=== PATIENT | female | born 1970 | race Caucasian/White ===

== ENCOUNTER 2018-07-23 07:35 | Emergency (ER) | payer BC ==
[2018-07-23 08:11] LABS: #Basophils 0.1 thou/uL (0.0-0.2); #Eosinphils 0.2 thou/uL (0.0-0.7); #Lymphocytes 0.9 thou/uL (1.20-3.40); #Monocytes 0.3 thou/uL (0.11-0.59); #Neutrophils 2.3 thou/uL (1.40-6.50); %Basophils 1.5 % (0.0-1.0); %Eosinophils 4.8 % (0.0-10.0); %Lymphocytes 24.9 % (21.0-51.0); %Monocytes 7.1 % (0.0-10.0); %Neutrophils 61.7 % (42.0-75.0); Hemoglobin 11.2 g/dL (12.0-16.0); Mean Corpuscular HGB CONC 31.4 g/dL (32.0-36.0); Mean Corpuscular Hemoglobin 26.8 pg (27.0-31.0); Mean Corpuscular Volume 85.3 fL (78.0-98.0); Mean Platelet Volume 8.2 fL (7.4-10.4); Platelet Count 353 thou/uL (130-400); RBC Distribution Width 17.6 % (11.5-14.5); Red Blood Cell (RBC) Count 4.18 mill/uL (4.20-5.40); White Blood Cell (WBC) Count 3.7 thou/uL (4.8-10.8)
[2018-07-23] MEDS ORDERED: Nitroglycerin 2% Ointment 1 INCH/1 GM Packet ONE (08:18)
--- NOTE | 2018-07-23 08:24 | RAD ---
PORTABLE CHEST: DATE: 07/23/2018. PROVIDED CLINICAL HISTORY: Chest pain. FINDINGS: Comparison is made with the study dated 09/12/2013. Cardiac and mediastinal silhouette is within norm al limits. Lungs appear clear. No pleural fluid or pneumothorax apparent. IMPRESSION: No evidence for an acute cardiopulmonary process. POS: [facility]
[2018-07-23 08:33] LABS: ALT (SGPT) 154 U/L (8-55); AST (SGOT) 127 U/L (5-34); Albumin 4.3 g/dL (3.5-5.0); Alkaline Phosphatase 190 U/L (40-150); Anion Gap 14 mmol/L (10-20); BUN (Urea Nitrogen) 12 mg/dL (7.0-18.7); Bilirubin, Total 0.3 mg/dL (0.2-1.2); CK (CPK) 134 U/L (29-168); Calc. Creatinine Clearance 0 mL/min (70-130); Calcium 9.5 mg/dL (7.8-10.44); Carbon Dioxide 25 mmol/L (22-29); Chloride 108 mmol/L (98-107); Estimated GFR-MDRD 73; Globulin 3.3 g/dL (2.4-3.5); Glucose 82 mg/dL (70-105); Potassium 4.3 mmol/L (3.5-5.1); Protein, Total 7.6 g/dL (6.0-8.3); Sodium 143 mmol/L (136-145)
[2018-07-23] MEDS ORDERED: Fentanyl 100 MCG/2 ML VIAL ONE (09:20)
[2018-07-23] MEDS ORDERED: Acetaminophen 500 MG TAB ONE (10:36)
[2018-07-23 11:48] LABS: Troponin I Less than 0.010 ng/mL (< 0.028)
[2018-07-23] MEDS ORDERED: diphenhydrAMINE 50 MG CAP ONE (12:14)
[2018-07-23] MEDS ORDERED: Ketorolac Tromethamine 30 MG/ML VIAL ONE (12:14)
== END 2018-07-23 12:22 | disposition home or self-care (01) ==
LOC: ERS 07:35
DX: R07.9 Chest pain, unspecified (principal); F32.9 Major depressive disorder, single episode, unspecified; F17.210 Nicotine dependence, cigarettes, uncomplicated; Z79.899 Other long term (current) drug therapy
CPT/HCPCS: 36415; 71045; 80053; 82550; 83690; 84484; 85025; 93005; 94760; 96374; 96375; J1885; J3010

== ENCOUNTER 2020-04-15 16:55 | Observation (INO) | payer OTHER ==
[2020-04-15 17:27] LABS: BHCG - Serum Negative (NEGATIVE); Pregs Control Background? CLEAR/WHITE (CLR/WHITE); Pregs Control Bar Appear? YES (CONTROL BAR)
[2020-04-15 17:33] LABS: #Basophils 0.1 thou/uL (0.0-0.2); #Eosinphils 0.1 thou/uL (0.0-0.7); #Lymphocytes 1.5 thou/uL (1.20-3.40); #Monocytes 0.3 thou/uL (0.11-0.59); #Neutrophils 3.2 thou/uL (1.40-6.50); %Basophils 1.4 % (0.0-1.0); %Eosinophils 2.6 % (0.0-10.0); %Lymphocytes 29.1 % (21.0-51.0); %Monocytes 4.8 % (0.0-10.0); %Neutrophils 62.1 % (42.0-75.0); Hemoglobin 11.1 g/dL (12.0-16.0); Mean Corpuscular HGB CONC 31.6 g/dL (32.0-36.0); Mean Corpuscular Hemoglobin 28.9 pg (27.0-31.0); Mean Corpuscular Volume 91.4 fL (78.0-98.0); Platelet Count 300 thou/uL (130-400); RBC Distribution Width 17.1 % (11.5-14.5); Red Blood Cell (RBC) Count 3.84 mill/uL (4.20-5.40); White Blood Cell (WBC) Count 5.1 thou/uL (4.8-10.8)
--- NOTE | 2020-04-15 17:37 | RAD ---
Exam: Chest one view HISTORY:Chest Comparison: 07/23/2028 FINDINGS: Cardiac silhouette: Normal Aorta: Unremarkable Pulmonary vessels: Normal Costophrenic angles: Clear LUNGS: No masses or consolidation. Pneumothorax: None Osseous abnormalities: None IMPRESSION: No acute cardiopulmonary process.
[2020-04-15 17:44] LABS: ALT (SGPT) 81 U/L (8-55); AST (SGOT) 91 U/L (5-34); Albumin 4.4 g/dL (3.5-5.0); Alkaline Phosphatase 98 U/L (40-110); Anion Gap 17 mmol/L (10-20); BUN (Urea Nitrogen) 15 mg/dL (7.0-18.7); Bilirubin, Total 0.2 mg/dL (0.2-1.2); CK (CPK) 106 U/L (29-168); Calc. Creatinine Clearance 0 mL/min (70-130); Calcium 8.8 mg/dL (7.8-10.44); Carbon Dioxide 22 mmol/L (22-29); Chloride 105 mmol/L (98-107); Estimated GFR-MDRD 60; Globulin 2.8 g/dL (2.4-3.5); Glucose 82 mg/dL (70-105); Potassium 4.2 mmol/L (3.5-5.1); Protein, Total 7.2 g/dL (6.0-8.3); Sodium 140 mmol/L (136-145)
[2020-04-15] MEDS ORDERED: Nitroglycerin 2% Ointment 1 INCH/1 GM Packet ONE (18:53)
[2020-04-15] MEDS ORDERED: Aspirin Chewable 81 MG TAB ONE (18:53)
[2020-04-15] MEDS ORDERED: Ondansetron PF 4 MG/2 ML Vial ONE (19:34)
[2020-04-15] MEDS ORDERED: Morphine 4 MG/ML VIAL ONE (19:38)
[2020-04-15] MEDS ORDERED: Acetaminophen 500 MG TAB ONE (19:45)
[2020-04-15 20:32] LABS: Troponin I Less than 0.010 ng/mL (< 0.028)
[2020-04-15 20:37] VITALS: BMI 26.6
[2020-04-15] MEDS ORDERED: Ondansetron PF 4 MG/2 ML Vial IVP PRN (20:47)
[2020-04-15] MEDS ORDERED: Acetaminophen 325 MG TAB PO PRN (20:47)
[2020-04-15] MEDS: Ondansetron ODT 4 MG TAB SL PRN (21:27)
[2020-04-15] MEDS ORDERED: Senokot S 8.6-50 MG TAB PO PRN (22:24)
[2020-04-15] MEDS ORDERED: Calcium Carbonate 500 MG ChewTAB PO PRN (22:24)
--- NOTE | 2020-04-15 22:33 | PDOC.HHP ---
Hospitalist HPI - History of Present Illness Chest pain History of Present Illness: PCP: Jd Menard The patient is a 49-year-old female with a past medical history of smoking, depression and restless leg that presents to the ER for the above complaint. The patient reports the development of chest pain at 8:00 this morning. The patient reports while working at her desk, the development of a dull aching left -sided chest pain, nonradiating, described as pressure or heaviness, exacerbated with deep breathing and relieved by nothing. She reports some associated shortness of breath. She denies any recent cough and has no history of COPD or asthma. No history of hypertension, diabetes, high cholesterol. Denies any illicit drug use. No history of PE or DVT. Has no other associated symptoms. ED Course: Presented hypertensive with a blood pressure of 170/111, normal pulse, normal respirations, afebrile. EKG normal sinus rhythm, 85 bpm, no ST elevation Chest x-ray negative for any acute process Initial troponin negative Medication administration: Full dose aspirin Nitropaste 1 g of Tylenol Morphine 4 mg IVP Zofran 4 mg IV push Hospitalist ROS - Review of Systems Constitutional: denies: fever, chills Respiratory: reports: shortness of breath, pleuritic pain. denies: cough, SOB with excertion, sputum, wheezing Cardiovascular: reports: chest pain. denies: palpitations, edema, light headedness Gastrointestinal: denies: nausea, vomiting, abdominal pain, diarrhea, constipation, melena, hematochezia Genitourinary: denies: dysuria, frequency, hematuria Skin: denies: rash, bruising Neurological: denies: weakness, incoordination, change in speech, confusion All other systems reviewed; all pertinent +/- noted in HPI/Subj - Medication Medications: Active Medications Generic Name Dose Route Start Last Admin Trade Name Freq PRN Reason Stop Dose Admin Acetaminophen 650 mg 04/15/20 20:47 04/15/20 21:25 Tylenol PO 04/16/20 18:40 650 mg Q4H PRN Administration Headache/Fever or Pain Ondansetron HCl 4 mg 04/15/20 20:47 04/15/20 21:27 Zofran Odt SL 04/16/20 18:40 4 mg Q6H PRN Administration Nausea/Vomiting Medications: Lexapro 10 mg p.o. daily Ropinirole 0.5 mg p.o. nightly Trazodone 100 mg p.o. 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) Psych: reports: Depression - Past Surgical History Past Surgical History: reports: Other (gastric bypass, hysterectomy, right knee sx, cholecysectomy) - Family History Family History: reports: cardiac disorder (father and grandmother) - Social History Smoking Status: Current every day smoker (1 pack/day x 32 years) Tobacco Type: cigarettes Alcohol: reports: Occassional (Used to drink 6 beers daily, has recently decreased her daily habit to socially) Living Situation: With Family (Lives with damien) Occupation: Works at an office Activity level: independent ambulation - Exam General Appearance: NAD, awake alert Eye: anicteric sclera ENT: normocephalic atraumatic Neck: supple, symmetric, no JVD Heart: RRR, no murmur, no gallops, no rubs, normal peripheral pulses Respiratory: CTAB, no wheezes, no rales, no ronchi, normal chest expansion, no tachypnea Gastrointestinal: soft, non-tender, normal bowel sounds, no guarding, no rigidity Extremities: no cyanosis, no edema Skin: no lesions, no rashes Neurological: normal sensation to touch, no weakness, no focal deficits Musculoskeletal: normal tone, normal strength Psychiatric: normal affect, A&O x 3 Hospitalist Results - Labs Result Diagrams: 04/15/20 17:05 04/15/20 17:05 Lab results: WBC 5.1 thou/uL (4.8-10.8) 04/15/20 17:05 Hgb 11.1 g/dL (12.0-16.0) L 04/15/20 17:05 Hct 35.1 % (36.0-47.0) L 04/15/20 17:05 MCV 91.4 fL (78.0-98.0) 04/15/20 17:05 Plt Count 300 thou/uL (130-400) 04/15/20 17:05 Neutrophils % 62.1 % (42.0-75.0) 04/15/20 17:05 Sodium 140 mmol/L (136-145) 04/15/20 17:05 Potassium 4.2 mmol/L (3.5-5.1) 04/15/20 17:05 Chloride 105 mmol/L (98-107) 04/15/20 17:05 Carbon Dioxide 22 mmol/L (22-29) 04/15/20 17:05 BUN 15 mg/dL (7.0-18.7) 04/15/20 17:05 Creatinine 0.99 mg/dL (0.6-1.1) 04/15/20 17:05 Glucose 82 mg/dL (70-105) 04/15/20 17:05 Calcium 8.8 mg/dL (7.8-10.44) 04/15/20 17:05 Total Bilirubin 0.2 mg/dL (0.2-1.2) 04/15/20 17:05 AST 91 U/L (5-34) H 04/15/20 17:05 ALT 81 U/L (8-55) H 04/15/20 17:05 Alkaline Phosphatase 98 U/L (40-110) 04/15/20 17:05 Creatine Kinase 106 U/L (29-168) 04/15/20 17:05 Troponin I Less than 0.010 ng/mL (< 0.028) 04/15/20 19:56 Serum Total Protein 7.2 g/dL (6.0-8.3) 04/15/20 17:05 Albumin 4.4 g/dL (3.5-5.0) 04/15/20 17:05 - EKG Interpretation EKG: EKG normal sinus rhythm, 85 bpm, no ST elevations - Radiology Interpretation Chest x-ray Status: report reviewed by me Additional Comment: No acute cardiopulmonary process. Hospitalist H&P A/P - Problem (1) Chest pain Code(s): R07.9 - CHEST PAIN, UNSPECIFIED Status: Acute Assessment and Plan: We will admit the patient telemetry floor, observation status. Expected length of stay less than 2 midnights. Wells PE score 0. Heart score 3, low risk. EKG normal sinus rhythm, chest x-ray negative for acute process, initial troponin negative. Trend troponins, check BNP, TSH, lipase, mag level, fasting lipid profile, UA and UDS. Continue aspirin, Nitropaste and morphine as needed. Order nuc med cardiac stress test. N.p.o. after midnight. (2) Tobacco abuse Code(s): Z72.0 - TOBACCO USE Status: Chronic Assessment and Plan: Reports 1 pack/day x 32-year history. Unwilling to quit. NRT therapy. Counseled tobacco cessation. (3) Depression Code(s): F32.9 - MAJOR DEPRESSIVE DISORDER, SINGLE EPISODE, UNSPECIFIED Status : Chronic Assessment and Plan: Stable. Denies suicidal and homicidal ideation. Will restart home dose of Lexapro. (4) RLS (restless legs syndrome) Status: Chronic Assessment and Plan: Takes Risperdal at home. Will restart when home med reconciled by nursing. - Plan Plan: SCDs for DVT prophylaxis. No GI prophylaxis. Full code. Designated medical decision-maker is her Saeid quezada at [phone]. Discussed case with Dr. Aguilar.
[2020-04-15] MEDS: Nicotine 14 MG PATCH TD SCH (22:53)
[2020-04-15 22:57] LABS: Bilirubin Negative (Negative); Blood, Urine Negative (Negative); Clarity Clear (Clear); Glucose, Urine (Dipstick) Normal (Negative); Ketone, Urine 10 mg/dL (Negative); Leukocyte Negative Leu/uL (Negative); Nitrite Negative (Negative); Protein, Urine (Dipstick) Negative (Neg-Trace); RBC/HPF 0-3 HPF (0-3); Specific Gravity, Urine 1.015 (1.002-1.036); Squamous Epithelial 0-3 HPF (0-3); Urobilinogen Normal mg/dL (Less than 2); WBC/HPF 0-3 HPF (0-3); pH, Urine 5.5 (5.0-9.0)
[2020-04-15 22:58] LABS: Bacteria/HPF Rare-Few HPF (None Seen)
[2020-04-15] MEDS ORDERED: Sodium Chloride 0.9% 1,000 ML IV SCH (23:00)
[2020-04-15] MEDS ORDERED: Atorvastatin Calcium 40 MG TAB PO SCH (23:00)
[2020-04-15] MEDS: Morphine 4 MG/ML VIAL SLOW IVP PRN (23:03)
[2020-04-15 23:09] LABS: Amphetamine Not Detected (NotDetected); Barbiturates Screen Not Detected (NotDetected); Benzodiazepine Screen Not Detected (NotDetected); Cocaine Metabolite Screen Not Detected (NotDetected); Medtox Control Line Valid? VALID (VALID); Medtox Reader # READER 1; Methadone Not Detected (NotDetected); Methamphetamine Not Detected (NotDetected); Opiate Screen Detected (NotDetected); Oxycodone Screen Not Detected (NotDetected); Phencyclidine (PCP) Not Detected (NotDetected); THC/Cannabinoid Screen Not Detected (NotDetected); Tricyclic Screen Not Detected (NotDetected)
[2020-04-15 23:25] LABS: Troponin I Less than 0.010 ng/mL (< 0.028)
[2020-04-16] MEDS: Nitroglycerin 2% Ointment 1 INCH/1 GM Packet TOP SCH ×3 (01:35→18:32)
[2020-04-16] MEDS ORDERED: traZODone HCl 50 MG TAB PO SCH (01:45)
[2020-04-16] MEDS: Morphine 4 MG/ML VIAL SLOW IVP PRN ×4 (03:20→20:08)
[2020-04-16 04:41] LABS: #Eosinphils 0.2 thou/uL (0.0-0.7); #Monocytes 0.3 thou/uL (0.11-0.59); #Neutrophils 1.8 thou/uL (1.40-6.50); %Basophils 0.8 % (0.0-1.0); %Eosinophils 4.7 % (0.0-10.0); %Lymphocytes 30.5 % (21.0-51.0); Hemoglobin 10.1 g/dL (12.0-16.0); Mean Corpuscular Hemoglobin 28.9 pg (27.0-31.0); Mean Corpuscular Volume 93.2 fL (78.0-98.0); Platelet Count 238 thou/uL (130-400); RBC Distribution Width 17.1 % (11.5-14.5); Red Blood Cell (RBC) Count 3.51 mill/uL (4.20-5.40); White Blood Cell (WBC) Count 3.3 thou/uL (4.8-10.8)
[2020-04-16 05:20] LABS: ALT (SGPT) 157 U/L (8-55); AST (SGOT) 412 U/L (5-34); Albumin 3.7 g/dL (3.5-5.0); Alkaline Phosphatase 98 U/L (40-110); Anion Gap 11 mmol/L (10-20); BUN (Urea Nitrogen) 13 mg/dL (7.0-18.7); Bilirubin, Total 0.3 mg/dL (0.2-1.2); Calc. Creatinine Clearance 72 mL/min (70-130); Calcium 8.4 mg/dL (7.8-10.44); Carbon Dioxide 27 mmol/L (22-29); Cardiac Risk 2.3 (Less than 4.5); Chloride 108 mmol/L (98-107); Cholesterol 185 mg/dl (< 200 Desired); Estimated GFR-MDRD 64; Globulin 2.5 g/dL (2.4-3.5); Glucose 73 mg/dL (70-105); HDL Cholesterol 80 mg/dL (>60 Neg Risk); LDL Cholesterol, Calculated 92 mg/dL; Potassium 4.3 mmol/L (3.5-5.1); Protein, Total 6.2 g/dL (6.0-8.3); Sodium 142 mmol/L (136-145); Triglycerides 66 mg/dL (Less than 150)
[2020-04-16] MEDS: Escitalopram Oxalate 10 mg Tablet PO SCH (08:25)
[2020-04-16] MEDS: Aspirin 81 mg Enteric Coated Tablet PO SCH (10:06)
--- NOTE | 2020-04-16 11:14 | CT ---
CT ANGIOGRAM THORAX WITH IV CONTRAST AND 3-D RECONSTRUCTIONS CLINICAL INDICATION: Pleuritic chest pain and shortness of breath. COMPARISON: CT thorax on 07/22/2013 FINDINGS: Pulmonary arteries: No filling defects are seen in the pulmonary arteries to suggest a pulmonary embo kaylyn. Aorta: Minimal atherosclerotic plaque in the descending thoracic aorta. Thoracic aorta is normal in c aliber without evidence of an aortic dissection. Lungs: Minimal dependent atelectasis each posterior lung base. Lungs are otherwise clear. No pulmonar y nodule, mass, or pleural effusion is seen in the lungs bilaterally. Mediastinum: There is no evidence of lymphadenopathy. Thyroid gland: Incompletely imaged on this exam. Osseous structures: No suspicious lytic or sclerotic osseous lesion. Chest wall: No abnormality visualized. Upper abdomen: Postoperative changes related to gastric bypass procedure are again seen. Postcholecys tectomy changes are again noted. IMPRESSION: 1. No CT evidence of a pulmonary embolus.
[2020-04-16] MEDS ORDERED: ADENOSINE 60 MG/20 ML VIAL ONE (11:33)
[2020-04-16] MEDS ORDERED: Ketorolac Tromethamine 30 MG/ML VIAL IVP SCH ×2 (12:00)
[2020-04-16 12:31] LABS: SARS-CoV-2 MS2 Positive; SARS-CoV-2 N Gene Negative; SARS-CoV-2 S Gene Negative; SARS-CoV-2 by NAA Not Detected (NotDetected); SARS-CoV-2 orf1ab Negative
[2020-04-16] MEDS ORDERED: Iopamidol 370 76% 100 ML VIAL ONE (13:15)
--- NOTE | 2020-04-16 13:56 | NM ---
NUCLEAR MEDICINE CARDIAC MYOCARDIAL PERFUSION SPECT EJECTION FRACTION STUDY WALL MOTION CINE: DATE: 04/16/2020 HISTORY: 49-year-old female smoker presents with acute chest pain TECHNIQUE: Number of days: 1 Rest study: Technetium 99m-sestamibi (Cardiolite) dose: 9.2 mCi Pharmacologic stress: Adenosine dose: 34.6 mg Stress study: Technetium 99m-sestamibi (Cardiolite) dose: 29.9 mCi FINDINGS: CARDIAC (MYOCARDIAL PERFUSION) SPECT There are no reversible myocardial perfusion defects. Questionable faint mild fixed anteroseptal defect which may or may not represent small scar/infarctio n. EJECTION FRACTION STUDY Left ventricular EF = 78 % WALL MOTION CINE Normal IMPRESSION: No evidence of reversible ischemia.
[2020-04-16] MEDS ORDERED: Famotidine 20 MG TAB PO SCH (14:30)
[2020-04-16] MEDS: Lidocaine 5% Patch TD SCH (16:04)
[2020-04-16] MEDS: Ondansetron ODT 4 MG TAB SL PRN (17:19)
--- NOTE | 2020-04-16 18:18 | PDOC.HOSPP ---
- Subjective Encounter Date: 04/16/20 Encounter Time: 07:00 Subjective: The patient continues to have chest pain on the left side of her chest. Aspirin and nitro have not relieved her pain. She states pain is worst when taking a deep breath. COVId negative. Denies recent trauma She states her pain was also worst when laying on her left side but did notice a difference sitting up Patient reportedly threw up her dinner She denies joint pain or joint swelling. Grandmother has rheumatoid arthritis, no family history of lupus - Objective Vital Signs & Weight: Vital Signs (12 hours) Temp Pulse Resp BP BP Pulse Ox 04/16/20 15:34 98.3 F 85 16 172/82 H 98 04/16/20 13:45 66 20 173/92 H 97 04/16/20 08:36 97 04/16/20 07:30 98.3 F 72 15 161/100 H 97 Weight Weight 136 lb 11.2 oz I&O: 04/15/20 04/16/20 04/17/20 06:59 06:59 06:59 Intake Total 1115 950 Output Total 500 Balance 615 950 Result Diagrams: 04/16/20 04:15 04/16/20 04:15 Hospitalist ROS - Review of Systems Constitutional: denies: fever, chills - Medication Medications: Active Medications Generic Name Dose Route Start Last Admin Trade Name Freq PRN Reason Stop Dose Admin Acetaminophen 650 mg 04/15/20 20:47 04/15/20 21:25 Tylenol PO 04/16/20 18:40 650 mg Q4H PRN Administration Headache/Fever or Pain Aspirin 81 mg 04/16/20 09:00 04/16/20 10:06 Ecotrin PO 81 mg DAILY RICKY Administration Escitalopram Oxalate 10 mg 04/16/20 09:00 04/16/20 08:25 Lexapro PO 10 mg DAILY RICKY Administration Lidocaine 1 patch 04/16/20 16:00 04/16/20 16:04 Lidoderm 5% Patch TD 1 patch 1600 RICKY Administration Morphine Sulfate 4 mg 04/15/20 22:53 04/16/20 13:57 Morphine SLOW IVP 4 mg Q4H PRN Administration Pain 6-10 Nicotine 14 mg 04/15/20 23:00 04/15/20 22:53 Nicoderm Patch TD 14 mg 2300 RICKY Administration Nitroglycerin 0.5 inch 04/16/20 02:00 04/16/20 08:36 Nitro-Bid 2% Ointment TOP Not Given 0200,1000,1800 RICKY Ondansetron HCl 4 mg 04/15/20 20:47 04/16/20 17:19 Zofran Odt SL 04/16/20 18:40 4 mg Q6H PRN Administration Nausea/Vomiting - Exam General Appearance: NAD, awake alert Eye: PERRL, anicteric sclera ENT: normocephalic atraumatic, no oropharyngeal lesions Neck: no JVD Heart: RRR, no murmur, no gallops, no rubs Respiratory: CTAB, no wheezes Gastrointestinal: soft, non-tender, non-distended, normal bowel sounds Extremities: no cyanosis, no clubbing, no edema Musculoskeletal - other findings: tenderness to chest palpation on left chest Hosp A/P - Plan CTA chest: no PE Stress test: normal THis is 49 year old female who presents with acute onset chest pain Chest pain - possibly costochondritis versus muscular etiology vs GI cause - stress test negative, ECHO normal, EKG benign - no relief with aspirin or nitro so will d/c - ordered lidocaine patch . Patient allergic to toradol, codeine/hydrocodone. Tramadol causes seizures Hypertensive urgency -BP in the 170's - will order amlodipine and reassess Transaminitis - LFTs have increased significantly. Got atorvastatin yesterday. Will hold further - check abdominal US to evaluate gallstones - give a dose of zosyn in case this is intra-abd infection . No abdominal tenderness on exam however - check hepatitis panel Leukopenia - WBC low at 3, will continue to trend - COVID negative Anemia - Hb - check iron panel in am,
[2020-04-16 19:48] LABS: HBCM Index 0.08 S/CO (0-0.79); HBSAg Index 0.19 S/CO (0-0.99); Hep A IgM AB Non-Reactive (NonReactive); Hep B Surf Ag Non-Reactive S/CO (NonReactive); Hep C IgG Ab Non-Reactive (NonReactive); Hep C Index 0.08 S/CO (0-0.79); Hepatitis B Core IgM Abs Non-Reactive (NonReactive)
[2020-04-16] MEDS ORDERED: Amlodipine 5 MG TAB PO SCH (20:00)
[2020-04-16] MEDS: Pantoprazole 40 MG VIAL IVP SCH (20:11)
[2020-04-16] MEDS: rOPINIRole HCl 0.5 MG TAB PO SCH (21:23)
[2020-04-16] MEDS: traZODone HCl 50 MG TAB PO SCH (21:23)
[2020-04-16] MEDS: Piperacillin/Tazobactam 3.375 GM in Sodium Chloride 0.9% 100 ML IVPB SCH (21:24)
[2020-04-16] MEDS: Nicotine 14 MG PATCH TD SCH (22:09)
--- NOTE | 2020-04-16 22:14 | ULT ---
EXAM: US Gallbladder RUQ CLINICAL HISTORY: Chest pain. Transaminitis.. COMPARISON: 09/25/2012 FINDINGS: Pancreas: The head of the pancreas has a normal echotexture. The remainder the pancreas is obscured by bowel gas Liver:Hepatic parenchyma has a normal echotexture. No hepatic masses or intrahepatic biliary dilatati on. Right hepatic lobe: 14.2 cm Gallbladder: Surgically absent De La Garza's sign:Not applicable Portal Vein: Patent. Appropriate directional flow Bile ducts: 0.8 cm common bile duct diameter Right kidney: Right renal cortical thinning. No hydronephrosis. Right kidney measures 5.0 x 4.5 x 9.5 cm in length. IMPRESSION: Normal hepatic parenchymal echotexture.
[2020-04-16] MEDS ORDERED: Lidocaine 5% Patch TD SCH (23:00)
[2020-04-17] MEDS: Morphine 4 MG/ML VIAL SLOW IVP PRN ×3 (00:28→22:29)
[2020-04-17] MEDS: Lidocaine Patch Removal 1 EACH TOP SCH (03:40)
[2020-04-17] MEDS: Piperacillin/Tazobactam 3.375 GM in Sodium Chloride 0.9% 100 ML IVPB SCH ×4 (03:40→22:21)
[2020-04-17 05:08] LABS: Iron 22 ug/dL (50-170); Iron Binding Capacity, Total 465 mcg/dL (265-497)
[2020-04-17 05:35] LABS: Ferritin 18.35 ng/mL (10-291)
[2020-04-17] MEDS: Aspirin 81 mg Enteric Coated Tablet PO SCH (08:40)
[2020-04-17] MEDS: Escitalopram Oxalate 10 mg Tablet PO SCH (08:40)
[2020-04-17] MEDS: Pantoprazole 40 MG VIAL IVP SCH ×2 (08:40→20:33)
[2020-04-17] MEDS ORDERED: Cyanocobalamin 1000 MCG/ML VIAL IM SCH (09:00)
[2020-04-17] MEDS ORDERED: diphenhydrAMINE 25 MG CAP PO PRN (09:13)
[2020-04-17] MEDS ORDERED: Gabapentin 100 MG CAP PO SCH (09:30)
[2020-04-17] MEDS ORDERED: Ferrous Sulfate 325 MG TAB PO SCH ×2 (10:00→17:00)
[2020-04-17 10:45] LABS: Hemoglobin 11.2 g/dL (12.0-16.0); Mean Corpuscular HGB CONC 29.5 g/dL (32.0-36.0); Mean Corpuscular Hemoglobin 28.2 pg (27.0-31.0); Mean Corpuscular Volume 95.7 fL (78.0-98.0); Mean Platelet Volume 7.8 fL (7.4-10.4); Platelet Count 262 thou/uL (130-400); RBC Distribution Width 17.5 % (11.5-14.5); Red Blood Cell (RBC) Count 3.98 mill/uL (4.20-5.40); White Blood Cell (WBC) Count 4.5 thou/uL (4.8-10.8)
[2020-04-17 10:54] LABS: ALT (SGPT) 107 U/L (8-55); AST (SGOT) 84 U/L (5-34); Alkaline Phosphatase 94 U/L (40-110); Bilirubin, Direct 0.2 mg/dL (0.1-0.3); Bilirubin, Total 0.5 mg/dL (0.2-1.2); Protein, Total 6.8 g/dL (6.0-8.3)
[2020-04-17] MEDS ORDERED: Lidocaine 5% Patch TD SCH (11:00)
--- NOTE | 2020-04-17 13:16 | CT ---
CT CERVICAL SPINE NONCONTRAST: DATE: 04/17/2020 HISTORY: 49-year-old female with cervical radiculopathy COMPARISON: 03/17/2014 FINDINGS: There is no subluxation. There is no evidence of acute fracture. The vertebral body heights are maint ained. There is no prevertebral soft tissue swelling. Mild to moderate disc space narrowing at C3-4, and mild disc space narrowing at C4-5, both new since prior CT. Previously mentioned mildly pro minent cervical lymph nodes are unchanged, and appear benign. C1-2: No central stenosis. C2-3: Essentially normal. C3-4: Mild left facet DJD. No central or neural foraminal stenosis. C4-5:. Small central disc protrusion, new or slightly larger than previously. No neural foraminal jannie nosis. Low-grade central spinal canal stenosis. Normal facet joints. C5-6: Small central disc protrusion encroaches upon anterior aspect of spinal canal. At least mild ce ntral spinal canal stenosis. No neural foraminal stenosis. C6-7: Central and left-central focal disc disc protrusion-osteophyte complex. No neural foraminal jannie nosis. No high-grade facet DJD. C7-T1: No high-grade central spinal canal stenosis or neural foraminal stenosis. IMPRESSION: 1) mild cervical spondylosis, slightly progressed since 04/13/2014. 2) disc protrusions at several levels. 3) no significant neural foraminal stenosis at any level.
[2020-04-17] MEDS: Lidocaine 5% Patch TD SCH (16:08)
[2020-04-17] MEDS ORDERED: Ketorolac Tromethamine 30 MG/ML VIAL IVP SCH (16:15)
[2020-04-17] MEDS ORDERED: predniSONE 20 MG TAB PO SCH (18:15)
[2020-04-17] MEDS ORDERED: Lorazepam 0.5 MG TAB PO PRN (19:40)
--- NOTE | 2020-04-17 19:43 | PDOC.HOSPP ---
- Subjective Encounter Date: 04/17/20 Encounter Time: 09:30 non-verbal Subjective: Chest pain - The patient states her chest pain improved to 8/10 and thinks antibiotics helped. She states she had burning in her abdomen and protonix has helped with that. Gabapentin was tried but made her very loopy and hyper and does not want to try it again. She states it did help her chest pain though. No relief with toradol that was tried today She is interested in trying tramadol for her chest pain, states that previously she had a seizure with it but thinks that she took something else with it at the time that caused the seizure. SHe reports she is an occasional drinker, drinks one glass of one every weekend. Neck pain - The patient had cT cervical spine, showed mild spondylosis. Reports neck pain worst with bending to the left. She does have tingling down her arm. Patient reported she was claustrophobic to MRI. SHe is agreeable to trying ativan, initially listed as an allergy but she states she is not allergic to it. Patient was going to be dc today but has no ride home. She states her lives in [place] - Objective Vital Signs & Weight: Vital Signs (12 hours) Temp Pulse Resp BP Pulse Ox 04/17/20 16:00 98.4 F 72 16 157/96 H 98 04/17/20 11:37 98.4 F 72 16 136/87 99 04/17/20 10:50 97 Weight Weight 136 lb 11.2 oz I&O: 04/16/20 04/17/20 04/18/20 06:59 06:59 06:59 Intake Total 1115 1850 Output Total 500 Balance 615 1850 Result Diagrams: 04/17/20 10:02 04/16/20 04:15 Hospitalist ROS - Review of Systems Constitutional: denies: fever, chills - Medication Medications: Active Medications Generic Name Dose Route Start Last Admin Trade Name Freq PRN Reason Stop Dose Admin Aspirin 81 mg 04/16/20 09:00 04/17/20 08:40 Ecotrin PO 81 mg DAILY RICKY Administration Cyanocobalamin 1,000 mcg 04/17/20 09:00 04/17/20 10:34 Vitamin B-12 IM 1,000 mcg [id number] RICKY Administration Diphenhydramine HCl 25 mg 04/17/20 09:13 04/17/20 16:59 Benadryl PO 25 mg Q6H PRN Administration Itching & Insomnia Escitalopram Oxalate 10 mg 04/16/20 09:00 04/17/20 08:40 Lexapro PO 10 mg DAILY RICKY Administration Piperacillin Sod/Tazobactam 100 mls @ 200 mls/hr 04/16/20 21:00 04/17/20 16: 08 Sod 3.375 gm/ Sodium Chloride IVPB 100 mls 0300,0900,1500,2100 RICKY Administration Lidocaine 1 patch 04/16/20 16:00 04/17/20 16:08 Lidoderm 5% Patch TD 1 patch 1600 RICKY Administration Miscellaneous Medication 1 each 04/17/20 04:00 04/17/20 03:40 Lidocaine Patch Removal TOP 1 each 0400 RICKY Administration Morphine Sulfate 4 mg 04/15/20 22:53 04/17/20 06:32 Morphine SLOW IVP 4 mg Q4H PRN Administration Pain 6-10 Nicotine 14 mg 04/15/20 23:00 04/16/20 22:09 Nicoderm Patch TD Not Given 2300 RICKY Pantoprazole Sodium 40 mg 04/16/20 21:00 04/17/20 08:40 Protonix IVP 40 mg Q12HR RICKY Administration Prednisone 40 mg 04/17/20 18:15 04/17/20 19:19 Prednisone PO 04/17/20 20:15 40 mg NOW RICKY Administration Ropinirole HCl 0.5 mg 04/16/20 21:00 04/16/20 21:23 Requip PO 0.5 mg HS RICKY Administration Sodium Chloride 10 ml 04/15/20 22:24 04/16/20 20:10 Flush - Normal Saline IVF 10 ml PRN PRN Administration Saline Flush Trazodone HCl 100 mg 04/16/20 21:00 04/16/20 21:23 Desyrel PO 100 mg HS RICKY Administration - Exam General Appearance: NAD, awake alert Eye: PERRL, anicteric sclera ENT: normocephalic atraumatic, no oropharyngeal lesions Neck: supple, symmetric, no JVD, no thyromegaly Heart: RRR, no murmur, no gallops, no rubs Respiratory: CTAB, no wheezes, no rales, no ronchi Gastrointestinal: soft, non-tender, non-distended, normal bowel sounds Extremities: no cyanosis, no clubbing, no edema Skin: normal turgor, no lesions, no rashes Neurological: cranial nerve grossly intact, normal sensation to touch, no focal deficits, no new deficit Musculoskeletal: normal tone, normal strength, no muscle wasting Psychiatric: normal affect, normal behavior, A&O x 3, oriented to person Hosp A/P - Plan CTA chest: no PE Stress test: normal THis is 49 year old female who presents with acute onset chest pain Chest pain - possibly costochondritis versus muscular etiology vs GI cause - stress test negative, ECHO normal, EKG benign - no relief with aspirin or nitro so will d/c. No relief with toradol - had some relief with gabapentin, so possibility of nerve etiology. Neck pain with left arm radiculopathy - CT cervical spine showed mild spondylosis with disc protrusions at several levels . No high grade stenosis but C5-C6 there is some encroaching on spinal canal - check MRI cervical spine tomorrow. She has mildly prominent cervical LN which appear benign Hypertensive urgency - continue amlodipine Transaminitis - LFTs have improved. Abd US normal. Hepatitis serology normal - likely from atorvastatin, discontinue further dosing Leukopenia - improving, continue to trend - COVID negative Iron deficiency Anemia -started iron supplementation
[2020-04-17] MEDS ORDERED: Amlodipine 5 MG TAB PO SCH (20:00)
[2020-04-17] MEDS: rOPINIRole HCl 0.5 MG TAB PO SCH (20:27)
[2020-04-17] MEDS: traZODone HCl 50 MG TAB PO SCH (20:27)
[2020-04-17] MEDS: Acetaminophen 325 MG TAB PO PRN (20:27)
[2020-04-17] MEDS: traMADol HCl 50 MG TAB PO PRN (20:28)
[2020-04-17] MEDS: Ondansetron PF 4 MG/2 ML Vial IVP PRN (20:30)
[2020-04-17] MEDS: Nicotine 14 MG PATCH TD SCH (23:11)
[2020-04-18] MEDS: traMADol HCl 50 MG TAB PO PRN ×2 (02:52→09:08)
[2020-04-18] MEDS: Acetaminophen 325 MG TAB PO PRN ×2 (02:52→09:08)
[2020-04-18] MEDS: Piperacillin/Tazobactam 3.375 GM in Sodium Chloride 0.9% 100 ML IVPB SCH ×2 (02:56→12:15)
[2020-04-18] MEDS: Lidocaine Patch Removal 1 EACH TOP SCH (02:58)
[2020-04-18] MEDS: Morphine 4 MG/ML VIAL SLOW IVP PRN ×2 (04:21→12:15)
[2020-04-18] MEDS: Aspirin 81 mg Enteric Coated Tablet PO SCH (09:08)
[2020-04-18] MEDS: Escitalopram Oxalate 10 mg Tablet PO SCH (09:08)
[2020-04-18] MEDS: Pantoprazole 40 MG VIAL IVP SCH (09:10)
[2020-04-18] MEDS: Ondansetron PF 4 MG/2 ML Vial IVP PRN (13:17)
[2020-04-18] MEDS ORDERED: Magnevist 469MG/ML 20 ML VIAL ONE ×2 (13:38)
--- NOTE | 2020-04-18 14:40 | MRI ---
EXAM: MRI Thoracic Spine W WO Con PROVIDED CLINICAL HISTORY: Left anterior chest pain as well as back pain. COMPARISON: None FINDINGS: The common duct is dilated. Patient has history of cholecystectomy, but this is likely related to res ervoir effect. The common duct measures 10 mm in diameter. Motion is present on multiple sequences which does mildly degrade image quality. The paravertebral soft tissues have a normal appearance. Normal signal intensity is demonstrated in the bone marrow. Conus medullaris is normal in appearance and terminates at the level of the L1 vertebral body. There is a mild disc osteophyte complex with central disc protrusion at the T2-3 level which results in effacement of the ventral subarachnoid space. Although there is motion artifact, there does not appear to be significant neural foraminal narrowing. At the T3-4 level, there is a mild disc osteophyte complex with effacement of the ventral subarachnoi d space and slight flattening of the anterior aspect of the spinal cord. Neural foramina are patent At the T5-6 level, there is a disc osteophyte complex with central disc protrusion/extrusion which do es result in mass effect and flattening of the central and right anterolateral aspect of the spinal cord. No abnormal signal intensity is appreciated in the spinal cord. Neural foramina are patent. Minimal disc osteophyte complexes are present at the T7-8 and T8-9 levels with slight effacement of t he ventral subarachnoid space at these levels and slight flattening of the anterior aspect of the spinal cord at the T8-9 level. Normal signal intensity is seen in the spinal cord at these levels. Ne ural foramina are patent at these levels. No additional significant intradural or extradural defect is identified, and the central spinal canal and neural foramina at the remaining levels of the thoracic spine are patent. No abnormal areas of enhancement are seen after the administration of intravenous contrast. IMPRESSION: Scattered degenerative changes in the cervical spine greatest at the T5-6 level. No high-grade centra l canal or neural foraminal narrowing is appreciated involving the thoracic spine.
[2020-04-18 14:53] LABS: Hemoglobin 10.5 g/dL (12.0-16.0); Mean Corpuscular HGB CONC 29.9 g/dL (32.0-36.0); Mean Corpuscular Hemoglobin 28.4 pg (27.0-31.0); Mean Corpuscular Volume 94.9 fL (78.0-98.0); Mean Platelet Volume 8.1 fL (7.4-10.4); Platelet Count 239 thou/uL (130-400); RBC Distribution Width 17.4 % (11.5-14.5); Red Blood Cell (RBC) Count 3.69 mill/uL (4.20-5.40)
--- NOTE | 2020-04-18 14:56 | MRI ---
MRI Cervical spine with and without contrast: HISTORY: Neck pain with left arm radiculopathy. COMPARISON: None FINDINGS: Mild mucosal thickening is present in the right maxillary antrum and right sphenoid sinus. The craniocervical junction is unremarkable. No significant cord signal abnormality. Paravertebral soft tissues have a normal appearance and normal signal intensity. C1-2:No significant stenosis. C2-3: There is no disc bulge or disc herniation. The central spinal canal and neural foramina are pat ent. C3-4: There is no disc bulge or disc herniation. The central spinal canal and neural foramina are pat ent. C4-5: Minimal disc aspect complex with tiny central disc protrusion. This narrows the ventral subarac hnoid space with slight flattening of the anterior aspect of the spinal cord. Neural foramina are patent. C5-6: Small central/right paracentral disc protrusion which contacts and flattens the right anterolat eral aspect of the spinal cord. Normal signal intensity is present in the spinal cord. Neural foramina are patent. C6-7: Broad-based disc osteophyte complex resulting in mild narrowing of the central spinal canal wit h mild flattening of the anterior aspect of the spinal cord. Neural foramina are patent. C7-T1: Tiny left paracentral disc protrusion resulting in slight effacement of the left anterolateral aspect of the ventral subarachnoid space but does not contact the spinal cord. Neural foramina are patent. T1-2 level: No disc bulge or disc herniation. Central spinal canal and neural foramina are patent T2-3 level: Minimal disc osteophyte complex with slight effacement of the ventral subarachnoid space. Neural foramina are patent T3-4 level: Tiny central disc protrusion resulting in effacement of the central aspect of the ventral subarachnoid space. Neural foramina are patent No abnormal areas of enhancement are seen after the administration of intravenous contrast. IMPRESSION: 1. Multilevel degenerative changes in the cervical spine as described above. No high-grade central ca nal or neural foraminal narrowing is present. Mild degrees of central canal narrowing and flattening of the anterior spinal cord are seen at levels of disc degenerative change.
[2020-04-18 15:12] LABS: ALT (SGPT) 64 U/L (8-55); AST (SGOT) 28 U/L (5-34); Albumin 3.7 g/dL (3.5-5.0); Alkaline Phosphatase 73 U/L (40-110); Bilirubin, Direct 0.1 mg/dL (0.1-0.3); Bilirubin, Total 0.2 mg/dL (0.2-1.2); Protein, Total 6.4 g/dL (6.0-8.3)
[2020-04-18 15:53] VITALS: BP 142/81; TEMP 98.2
--- NOTE | 2020-04-18 19:43 | DIS ---
DATE OF ADMISSION: 04/15/2020 DATE OF DISCHARGE: 04/18/2020 DISCHARGE DIAGNOSES: 1. Chest pain possibly secondary to costochondritis. 2. Leukopenia. 3. Iron deficiency anemia. 4. Status post gastric bypass. CONSULTATIONS: None. PROCEDURES: None. BRIEF HISTORY OF PRESENT ILLNESS: This is a 49-year-old female with past medical history of depression, tobacco abuse, history of gastric bypass, who presented to the emergency room with acute onset chest pain that started at 8 o'clock in the morning while the patient was working at her desk. She described the chest pain as a dull aching left-sided chest pain that was nonradiating, worse with deep breathing and not relieved by anything. She denies lifting any heavy objects. She stated that the pain was worse with lying on her left side. She denied any recent infectious symptoms. She presented to the hospital for further workup. HOSPITAL COURSE: 1. Chest pain, possibly secondary to costochondritis: The patient had an EKG, which was normal. Her Wells score was zero. However, given her pleuritic chest pain , she underwent a CT of her chest, which showed no evidence of PE. She received IV zosyn for a few days with initial improvement but no significant improvement so antibiotics were discontinued. There was no evidence of rib fractures either. She had a nuclear stress test, which was unremarkable. Echocardiogram was normal. The patient had neck pain with radiculopathy. MRI of thoracic and cervical spine showed no significant herniated disc contributing to her chest pain. She did have significant tenderness to palpation of the left side of her chest suspicious for costochondritis. She had no relief with toradol in the hospital. The patient stated ibuprofen 800 mg at home does not work. She reported itching to multiple narcotics but was willing to try tramadol. She thought she had seizure reaction to this in the past, but thought it may have been secondary to a different substance, so wanted to try it. Her pain improved with tramadol ; she had no seizures with this so it was taken off her allergy list. She was discharged with tramadol 25 mg q6 hours as needed . She was advised to follow up with pain management clinic if her pain persists. COVID was negative. 2. Transaminitis: The patient had an AST of 91, which increased to 412 after receiving atorvastatin. Her LFTs were trended and her AST came back to normal at 28, but her ALT is still elevated at 64. The patient states that she drinks occasionally only once a week. She is advised to abstain from alcohol. Her ultrasound of her gallbladder was normal. She should have her LFTs repeated in a week. 3. Iron deficiency anemia: The patient had a hemoglobin of 10.5. Her ferritin level was 18.3, and her iron sat was 5. She was started on iron supplements 325 mg twice daily. She was also noted to have borderline B12 level of 265. She was given a one time B12 injection. She should consider getting B12 injections monthly given her gastric bypass. 4. Tobacco abuse: The patient was discharged with a nicotine patch. 5. Hypertension : The patient's blood pressure was 160 systolic while in the hospital. She was started on amlodipine with improvement in her blood pressure to 124 systolic. She should follow up with her PCP with regard to additional titration. 6. Leukopenia: The patient had a white count of 3.3 while in the hospital. She did receive antibiotics initially due to concern for possible infection. However, this was discontinued at the time of discharge given no significant improvement in her chest pain. WBC normalized to 7 at the time of discharge. She was afebrile. COVID was negative. DISCHARGE PHYSICAL EXAMINATION: VITAL SIGNS: Temperature 98.3, heart rate 81, respiratory rate 18, O2 saturation 98% on room air, and blood pressure 124/77. GENERAL: The patient is alert, awake, and oriented x3. MUSCULOSKELETAL: The patient has tenderness to palpation of her neck. She has pain with lateral extension of her neck to her left side. She has full range of motion of her arms. She has 5/5 strength in her upper arms and 5/5 strength in her legs. She has tenderness to palpation of the left chest to mild palpation. CVS: Regular rate and rhythm with no murmurs, rubs, or gallops. LUNGS: Clear to auscultation bilaterally. ABDOMEN: Positive bowel sounds. Soft, nontender, and nondistended. EXTREMITIES: No edema. NEUROLOGIC: The patient's cranial nerves 2 through 12 are intact. She has normal sensation in all 4 extremities. She has 3+ reflexes on her biceps, brachioradialis, patellar symmetrically. PERTINENT LABORATORY DATA: CBC on 04/18: White count 7.0, hemoglobin 10.5, hematocrit 34.0, and platelet count 239. LFTs on 04/18: AST 28, ALT 64, and alkaline phosphatase 73. BMP: Unremarkable. Iron panel on 04/17: Ferritin 18, iron sat 5%, TIBC 465, and serum iron 22. Lipid panel on 04/16: Triglycerides 66, cholesterol 185, LDL 92, and HDL 80. Vitamin B12: 265. Folate: 10. TSH: 2. UA on 04/15: Shows 10 ketones. Otherwise, unremarkable. U-tox on 04/05: Positive for opiates. COVID serology on 04/15: Negative. Hepatitis serology on 04/16: Negative. PERTINENT IMAGING: Chest x-ray on 04/15: No acute disease. Nuclear stress test on 04/16: No evidence of reversible ischemia. CTA chest on 04/16: No evidence of PE. Abdominal ultrasound on 04/16: Normal hepatic parenchymal echotexture. Cervical spine CT on 04/17: Mild cervical spondylosis, slightly progressed. Disk protrusions at several levels. No significant neural foraminal stenosis. Cervical spine MRI on 04/18: Multilevel degenerative changes. No high-grade central canal or neural foraminal narrowing. Mild degrees of central canal narrowing and flattening of the anterior spinal cord. Thoracic spine MRI on 04/18: Scattered degenerative change in the cervical spine, greatest at the T5 through T6 level. No high-grade narrowing. Echo on 04/16: EF 55% to 60%. Mild TR. DISCHARGE CONDITION: Stable. ACTIVITY: As tolerated. DIET: Regular diet. DISCHARGE MEDICATIONS: 1. Amlodipine 5 mg p.o. daily. 2. Ferrous sulfate 325 mg p.o. b.i.d. 3. Multivitamin p.o. daily. 4. Nicotine patch 14 mg transdermally. 5. Tramadol 25 mg p.o. q.6 hours p.r.n., quantity 12. All other home medications were resumed. DISCHARGE INSTRUCTIONS: The patient is to follow up with her PCP in a week and get repeat LFTs in a week. She should also get vitamin B12 shots monthly. Consider repeat iron level in 6 weeks. Follow up blood pressure after starting on amlodipine. Consider referring to a pain specialist if chest pain does not improve. Job ID: [id number] [facility]
== END 2020-04-18 16:42 | disposition home or self-care (01) ==
LOC: ERS 16:55 → 2SW 18:43
PROVIDERS: ADMIT Student in an Organized Health Care Education/Training Program; ATTEND Student in an Organized Health Care Education/Training Program
DX: R07.81 Pleurodynia (principal); I16.0 Hypertensive urgency; R74.0 Nonspecific elevation of levels of transaminase and lactic acid dehydrogenase [LDH]; D50.9 Iron deficiency anemia, unspecified; D72.819 Decreased white blood cell count, unspecified; G25.81 Restless legs syndrome; F17.210 Nicotine dependence, cigarettes, uncomplicated; F32.9 Major depressive disorder, single episode, unspecified; I10 Essential (primary) hypertension; D64.9 Anemia, unspecified; Z79.82 Long term (current) use of aspirin; Z79.899 Other long term (current) drug therapy; Z88.2 Allergy status to sulfonamides; Z88.5 Allergy status to narcotic agent; Z88.8 Allergy status to other drugs, medicaments and biological substances; Z20.828 Contact with and (suspected) exposure to other viral communicable diseases
CPT/HCPCS: 36415; 71045; 71275; 72125; 72156; 72157; 76705; 78452; 80053; 80061; 80074; 80076; 80306; 81001; 82550; 82607; 82728; 82746; 83540; 83550; 83690; 83735; 83880; 84443; 84484; 84703; 85025; 85027; 85379; 87635; 93005; 93017; 93306; 94760; 96361; 96365; 96366; 96372; 96374; 96375; 96376; A9500; A9579; C9113; G0378; J0153; J1885; J2270; J2405; J2543; J3420; J3490; J7512; Q0162; Q0163; Q9967; U0003

== ENCOUNTER 2020-09-06 07:39 | Emergency (ER) | payer OTHER ==
[2020-09-06] MEDS ORDERED: Acetaminophen 500 MG TAB ONE (08:10)
--- NOTE | 2020-09-06 08:11 | RAD ---
EXAM: Single view of the chest HISTORY: Fall with right rib pain COMPARISON: 04/15/2020 FINDINGS: Single view of the chest shows a normal sized cardiomediastinal silhouette. There is no imer dence of consolidation, mass, or pleural effusion. Degenerative changes are seen in the spine. There may be a nondisplaced fracture of one of the lateral inferior ribs. No pneumothorax is seen. IMPRESSION: Possible nondisplaced right rib fracture.
== END 2020-09-06 09:36 | disposition home or self-care (01) ==
LOC: ERS 07:39
DX: S22.31XA Fracture of one rib, right side, initial encounter for closed fracture (principal); F17.210 Nicotine dependence, cigarettes, uncomplicated; W18.2XXA Fall in (into) shower or empty bathtub, initial encounter
CPT/HCPCS: 71045

== ENCOUNTER 2025-03-13 15:11 | Outpatient (CLI) | payer OTHER | END 2025-03-13 15:12 | disposition home or self-care (01) | LOC: SCSRAD 15:11 | PROVIDERS: ATTEND Nurse Practitioner Family | DX: M79.642 Pain in left hand (principal); R51.9 Headache, unspecified; R07.81 Pleurodynia; S22.42XA Multiple fractures of ribs, left side, initial encounter for closed fracture; S62.617A Displaced fracture of proximal phalanx of left little finger, initial encounter for closed fracture | CPT/HCPCS: 70150 ==

== ENCOUNTER 2025-03-29 13:34 | Outpatient (CLI) | payer OTHER | END 2025-03-29 13:35 | disposition home or self-care (01) | LOC: SCSRAD 13:34 | PROVIDERS: ATTEND Nurse Practitioner Family | DX: M79.642 Pain in left hand (principal); S62.617A Displaced fracture of proximal phalanx of left little finger, initial encounter for closed fracture ==